=== PATIENT | female | born 1940 | race Caucasian/White ===

== ENCOUNTER 2023-02-18 19:59 | Observation (INO) | payer MEDICARE, OTHER ==
[2023-02-18] MEDS ORDERED: Azithromycin 500 MG in Sodium Chloride 0.9% 250 ML 250 ML IVPB SCH (22:00)
[2023-02-18] MEDS ORDERED: Acetaminophen 325 MG TAB PO PRN (22:00)
[2023-02-18] MEDS ORDERED: Morphine 2 MG/ML VIAL SLOW IVP PRN (22:04)
[2023-02-18] MEDS ORDERED: Ventolin HFA Inhaler 60 PUFF INHALER INH PRN (22:30)
[2023-02-18] MEDS ORDERED: cefTRIAXone\\ROCEPHIN 2 GM in Sodium Chloride 0.9% 100 ML IVPB SCH (23:00)
[2023-02-18 23:41] LABS: Troponin I 0.017 ng/mL (< 0.028)
[2023-02-19 03:09] LABS: #Eosinphils 0.1 10x3/uL (0.0-0.5); #Monocytes 0.9 10x3/uL (0.0-1.1); #Neutrophils 3.4 10x3/uL (1.5-8.4); %Basophils 0.7 % (0.0-2.0); %Lymphocytes 24.4 % (18.0-47.0); %Monocytes 15.1 % (0.0-10.0); %Neutrophils 58.5 % (40.0-75.0); Hematocrit 30.3 % (34.9-44.5); Hemoglobin 9.7 g/dL (12.0-15.5); Mean Corpuscular Hemoglobin 31.5 pg (27.0-33.0); Mean Corpuscular Volume 98.4 fl (81.6-98.3); Mean Platelet Volume 12.2 fl (7.4-10.4); Platelet Count 151 10x3/uL (150-450); RBC Distribution Width 14.3 % (11.5-14.5); Red Blood Cell (RBC) Count 3.08 10x6/uL (3.90-5.03); White Blood Cell (WBC) Count 5.8 10x3/uL (3.5-10.5)
[2023-02-19 03:47] LABS: Anion Gap 16 mmol/L (10-20); BUN (Urea Nitrogen) 18 mg/dL (9.8-20.1); Calc. Creatinine Clearance 0 mL/min (70-130); Calcium 8.2 mg/dL (7.8-10.44); Carbon Dioxide 23 mmol/L (23-31); Chloride 102 mmol/L (98-107); Estimated GFR 41; Glucose 98 mg/dL (83-110); Potassium 3.3 mmol/L (3.5-5.1); Sodium 138 mmol/L (136-145)
[2023-02-19] MEDS ORDERED: Furosemide 40 MG/4 ML VIAL SLOW IVP SCH (06:00)
[2023-02-19 06:35] VITALS: BMI 29.0
[2023-02-19] MEDS ORDERED: Carvedilol 12.5 MG TAB PO SCH (08:00)
[2023-02-19] MEDS ORDERED: Potassium Chloride 20 MEQ TAB PO SCH (08:00)
[2023-02-19] MEDS ORDERED: dilTIAZem CD 180 MG CAP PO SCH (09:00)
[2023-02-19] MEDS ORDERED: Aspirin 81 mg Enteric Coated Tablet PO SCH (09:00)
[2023-02-19] MEDS ORDERED: Citalopram 20 MG TAB PO SCH (09:00)
[2023-02-19 09:54] VITALS: TEMP 98.1
[2023-02-19 12:52] VITALS: BP 170/76
[2023-02-19 14:00] LABS: SARS-CoV-2 NAA Rapid Test Not Detected (NotDetected)
[2023-02-19] MEDS ORDERED: Atorvastatin Calcium 40 MG TAB PO SCH (21:00)
== END 2023-02-19 13:31 | disposition home or self-care (01) ==
LOC: INTOOBSV 19:59 → CSHTELE 19:59
PROVIDERS: ADMIT Family Medicine; ATTEND Family Medicine
DX: R07.9 Chest pain, unspecified (principal); I25.10 Atherosclerotic heart disease of native coronary artery without angina pectoris; J18.9 Pneumonia, unspecified organism; I50.9 Heart failure, unspecified; Z79.899 Other long term (current) drug therapy; Z79.84 Long term (current) use of oral hypoglycemic drugs; Z79.82 Long term (current) use of aspirin; Z86.73 Personal history of transient ischemic attack (TIA), and cerebral infarction without residual deficits; Z88.0 Allergy status to penicillin
CPT/HCPCS: 0241U; 71045; 71275; 80048; 80053; 83880; 84145; 84484 ×2; 85025 ×2; 93005; 94760; 96372; 96374; 96375; 96376; 97530; 99285; G0378 ×2; J0456; 36415; J0696; J1650; J1940; J3490; J7050

== ENCOUNTER 2023-03-11 09:12 | Emergency (ER) | payer MEDICARE ==
[2023-03-11 10:56] LABS: #Basophils 0.1 10x3/uL (0.0-0.2); #Eosinphils 0.1 10x3/uL (0.0-0.5); #Monocytes 0.7 10x3/uL (0.0-1.1); #Neutrophils 4.4 10x3/uL (1.5-8.4); %Basophils 1.6 % (0.0-2.0); %Eosinophils 1.9 % (0.0-6.0); %Lymphocytes 22.5 % (18.0-47.0); %Monocytes 10.5 % (0.0-10.0); %Neutrophils 63.2 % (40.0-75.0); Hematocrit 30.2 % (34.9-44.5); Hemoglobin 9.8 g/dL (12.0-15.5); Mean Corpuscular HGB CONC 32.5 g/dL (32.0-36.0); Mean Corpuscular Hemoglobin 30.8 pg (27.0-33.0); Mean Platelet Volume 12.1 fl (7.4-10.4); Platelet Count 274 10x3/uL (150-450); RBC Distribution Width 13.7 % (11.5-14.5); Red Blood Cell (RBC) Count 3.18 10x6/uL (3.90-5.03); White Blood Cell (WBC) Count 6.9 10x3/uL (3.5-10.5)
[2023-03-11 11:00] LABS: ALT (SGPT) Less than 7 U/L (8-55); AST (SGOT) 12 U/L (5-34); Albumin 3.4 g/dL (3.4-4.8); Alkaline Phosphatase 102 U/L (40-110); Anion Gap 17 mmol/L (10-20); BUN (Urea Nitrogen) 17 mg/dL (9.8-20.1); Bilirubin, Total 0.7 mg/dL (0.2-1.2); Calc. Creatinine Clearance 0 mL/min (70-130); Carbon Dioxide 22 mmol/L (23-31); Chloride 104 mmol/L (98-107); Estimated GFR 40; Globulin 2.7 g/dL (2.4-3.5); Glucose 102 mg/dL (83-110); Potassium 3.8 mmol/L (3.5-5.1); Protein, Total 6.1 g/dL (5.8-8.1); Sodium 139 mmol/L (136-145)
[2023-03-11] MEDS ORDERED: Furosemide 40 MG/4 ML VIAL ONE (12:57)
== END 2023-03-11 13:00 | disposition home or self-care (01) ==
LOC: CSHERS 09:12
DX: I11.0 Hypertensive heart disease with heart failure (principal); I50.21 Acute systolic (congestive) heart failure; E87.70 Fluid overload, unspecified; J44.9 Chronic obstructive pulmonary disease, unspecified; Z87.891 Personal history of nicotine dependence
CPT/HCPCS: 71045; 80053; 83880; 84484; 85025; 93005; 96374; J1940